=== PATIENT | female | born 1970 | race Two or more races ===

== ENCOUNTER 2022-07-24 05:40 | Day surgery (SDC) | payer OTHER ==
[~2022-07-24] VITALS: Ht 154.9 cm; Wt 108.0 kg
[~2022-07-24 05:40] MED LIST: COZAAR100 MG PO; GABAPENTIN300 M2 PO; HYDROCHLOROTHIA25 MG PO; LEVO-T175 MCG PO; LIPITOR20 MG PO; METFORMIN HCL500 M3 PO; NORVASC5 MG PO; OMEGA-31000 MG PO
== END 2022-07-24 14:00 | disposition home or self-care (01) ==
LOC: CIR.AMB 05:40
PROVIDERS: ATTEND Surgery
DX: K43.6 Other and unspecified ventral hernia with obstruction, without gangrene (principal); Z20.822 Contact with and (suspected) exposure to COVID-19
CPT/HCPCS: 49594; C1781